=== PATIENT | male | born 1975 | race Caucasian/White ===

== ENCOUNTER 2018-02-18 07:25 | Day surgery (SDC) | payer OTHER ==
[2018-02-18] MEDS ORDERED: LIDOCAINE 1%/EPI 1:100000 (20 ML MULTI DOSE VIAL) ONE (07:38)
[2018-02-18 08:14] VITALS: BMI 33.0
[2018-02-18] MEDS ORDERED: PROPOFOL 20 ML ONE ×3 (08:57)
[2018-02-18] MEDS ORDERED: MIDAZOLAM HCL 2 MG/2 ML SINGLE DOSE VIAL ONE (08:58)
[2018-02-18] MEDS ORDERED: SUCCINYLCHOLINE CHLORIDE 200 MG/10 ML VIAL ONE (08:58)
[2018-02-18] MEDS ORDERED: LIDOCAINE HCL/PF 2% SDV 5ML VIAL ONE ×2 (08:59→09:00)
[2018-02-18] MEDS ORDERED: ceFAZolin SODIUM 1 GM VIAL ONE (09:00)
[2018-02-18] MEDS ORDERED: PROMETHAZINE HCL 25 MG/1 ML VIAL IVPB PRN (10:31)
[2018-02-18] MEDS ORDERED: oxyCODONE HCL 5 MG TABLET PO PRN ×2 (10:31)
[2018-02-18] MEDS ORDERED: ONDANSETRON 4 MG/2 ML VIAL IVPUSH PRN (10:31)
[2018-02-18] MEDS ORDERED: LACTATED RINGERS SOLUTION 1,000 ML IV SCH (10:45)
[2018-02-18 10:54] VITALS: TEMP 97.5
[2018-02-18 11:11] VITALS: BP 123/80; PULSE 62
--- NOTE | 2018-02-18 12:05 | OP ---
DATE OF OPERATION: 02/18/2018 PREOPERATIVE DIAGNOSIS: Soft tissue mass, right upper back/soft tissue mass, left upper back (suspect epidermal inclusion cysts). POSTOPERATIVE DIAGNOSIS: Soft tissue mass, right upper back/soft tissue mass, left upper back (suspect epidermal inclusion cysts). PROCEDURE: Excision, right upper back soft tissue mass (intermediate wound closure, 4 cm); excision, left upper back soft tissue mass (intermediate wound closure, 6 cm). OPERATING SURGEON: Omid Cleaning MD ANESTHESIA: Yonny Kunz M.D. ([place] [place] HISTORY: This is a 42-year-old man who presents for excision of enlarging soft tissue masses of the back which appear to represent epidermal inclusion cysts. Indications, alternatives and possible complications reviewed. Consent obtained. PROCEDURE: With the patient in the prone position, after IV sedation, the right and left upper back were prepped and draped in sterile fashion using chlorhexidine. First directing our attention to the right upper back, using a marking pen, a 4- cm longitudinal elliptical incision was outlined about the mass. After placement of adequate anesthesia as a field block the incision was made in the premarked area and deepened into the subcutaneous space. The mass was excised in its entirety with a rim of overlying skin and surrounding subcutaneous fat and without rupture. After adequate hemostasis and irrigation the wound was closed in layers. The deeper subcutaneous tissues were approximated using interrupted 3-0 chromic sutures. The subcuticular layer was approximated using interrupted 4-0 Biosyn and 3-0 Vicryl sutures. The skin edges were approximated using continuous 5-0 nylon suture. Now directing our attention to the left upper back, a generous elliptical 6- to 7-cm incision was outlined. Again local anesthesia used to create a field block. An incision was made in the premarked area and deepened into the subcutaneous space once again. The larger mass was excised similar with an overlying rim of skin and surrounding subcutaneous fat and again without rupture. After adequate hemostasis the wound was closed in layers. Again the deeper subcutaneous tissues were approximated using interrupted 3-0 chromic suture. The subcuticular layer was approximated using interrupted 2-0 Vicryl sutures. The skin edges were closed using continuous 5-0 nylon suture. Dermabond was placed at the level of both wounds. The procedure was terminated. Instrument and needle counts were correct. Estimated blood loss: Minimal. Specimen: Soft tissue masses, right and left upper back. Patient tolerated the procedure. The procedure was terminated. Temo VINCENT/[id number] MTDD
--- NOTE | 2018-02-20 15:53 | PATH ---
Surgical Pathology Report Patient Name: FREDI VENTURA [facility]. Rec. #: [id number] /Age/Gender: 1975 (Age: 42) / M Account: [id number] Location: [facility] AMBULATORY Taken: 02/18/2018 Received: 02/18/2018 Reported: 02/20/2018 Physicians: Omid Cleaning M.D. Specimen(s) Received A: RIGHT BACK MASS B: LEFT BACK MASS Clinical History Soft tissue mass left back, soft tissue mass right back Final Diagnosis A. BACK, RIGHT, MASS, EXCISION: EPIDERMAL INCLUSION CYST. B. BACK, LEFT, MASS, EXCISION: EPIDERMAL INCLUSION CYST. Electronically Signed Yoli Ojeda M.D. Gross Description A. Received in formalin labeled "right back mass," is a 3.7 x 2.3 x 1.8 cm unoriented portion of soft tissue which is surfaced by a 3.5 x 1.1 cm barron, elliptical, unremarkable portion of skin. Sectioning reveals an intact cyst containing barron sebaceous material. A tour sales representative section is submitted in one cassette. B. Received in formalin labeled "left back mass," is a 6.0 x 3.3 x 2.7 cm unoriented portion of soft tissue which is surfaced by a 5.7 x 2.0 cm barron, elliptical portion of skin. Sectioning reveals an intact cyst containing barron sebaceous material. Payloader Machine Operator sections are submitted in 2 cassettes. DL/02/19/2018 saudi/02/19/2018
== END 2018-02-18 11:15 | disposition home or self-care (01) ==
LOC: FASU 07:25
PROVIDERS: ATTEND Surgery
PROC: 0JB70ZZ Excision of Back Subcutaneous Tissue and Fascia, Open Approach (ICD-10-PCS; principal; 2018-02-18 09:31)
DX: D21.6 Benign neoplasm of connective and other soft tissue of trunk, unspecified (principal)
CPT/HCPCS: 88304-TC